=== PATIENT | female | born 1975 | race Caucasian/White ===

== ENCOUNTER → 2016-09-03 | Outpatient (CLI) | payer BC ==
--- NOTE | 2016-09-03 08:45 | DIAGNOSTIC IMAGING REPORT ---
ULTRASOUND RIGHT UPPER QUADRANT ABDOMEN CLINICAL HISTORY: Right upper quadrant abdominal pain. COMPARISON STUDY: No priors. TECHNIQUE: Real-time, grayscale, and color flow sonography of the right upper quadrant of the abdomen was performed. Images are reviewed in the transverse and longitudinal planes. FINDINGS: Liver: The liver is normal in size and echotexture. There is no intrahepatic biliary ductal dilatation. The main portal vein is patent. Gallbladder: The gallbladder is normal in appearance. No gallstones are identified. There is no gallbladder wall thickening or pericholecystic fluid. A sonographic Ennis's sign is reportedly absent. The common bile duct measures up to 0.3 cm in diameter. Pancreas: Visualized portions of the pancreatic head and body are normal in appearance. Right kidney: Survey images of the right kidney demonstrate normal size and echotexture. There is no hydronephrosis. Ascites: None. IMPRESSION: Unremarkable sonographic assessment of the right upper quadrant. No gallstones are identified. Electronically signed by: Marco A Cole M.D. 09/03/2016 8:44 AM Dictated Date/Time: 09/03/2016 8:43 AM
== END | disposition home or self-care (01) ==
LOC: C.ULTR 07:58
PROVIDERS: ATTEND Family Medicine
DX: R10.11 Right upper quadrant pain (principal)

== ENCOUNTER → 2016-09-03 | Outpatient (CLI) | payer BC ==
[2016-09-03 10:06] LABS: COMPLETE YES; EOS % 3.3 %; HEMATOCRIT 45.1 % (37-47); LYMPH ABS # 0.97 K/uL (1.2-3.4); MEAN CELL VOLUME 89.8 fL (80-100); MEAN CORPUSCULAR HEMOGLOBIN 30.7 pg (25-34); MEAN CORPUSCULAR HGB CONC 34.1 g/dl (32-36); MONO % 10.8 %; NEUT % 56.9 %; PLATELET COUNT 167 K/uL (130-400); RED BLOOD COUNT 5.02 M/uL (4.2-5.4); WHITE BLOOD COUNT 3.34 K/uL (4.8-10.8)
[2016-09-03 10:29] LABS: ALB/GLOB RATIO 1.3 (0.9-2); ALKALINE PHOSPHATASE 108 U/L (45-117); ALT/SGPT 23 U/L (12-78); AST/SGOT 13 U/L (15-37); BLOOD UREA NITROGEN 13 mg/dl (7-18); BUN/CREATININE RATIO 16.8 (10-20); CARBON DIOXIDE 25 mmol/L (21-32); CHLORIDE 107 mmol/L (98-107); CREATININE 0.77 mg/dl (0.60-1.20); GLUCOSE 88 mg/dl (70-99); HDL CHOLESTEROL 94 mg/dl; POTASSIUM 3.6 mmol/L (3.5-5.1); SODIUM 142 mmol/L (136-145)
[2016-09-03 10:39] LABS: CHOLESTEROL 212 mg/dl (0-200); CHOLESTEROL/HDL RATIO 2.3; LDL CHOLESTEROL CALCULATED 102 mg/dl; TRIGLYCERIDES 79 mg/dl (0-150); VERY LOW DENSITY LIPOPROT CALC 16 mg/dl
== END | disposition home or self-care (01) ==
LOC: C.LAB1850 08:58
PROVIDERS: ATTEND Family Medicine
DX: Z00.00 Encounter for general adult medical examination without abnormal findings (principal); Z13.220 Encounter for screening for lipoid disorders; Z13.29 Encounter for screening for other suspected endocrine disorder

== ENCOUNTER → 2016-09-03 | Outpatient (CLI) | payer BC ==
--- NOTE | 2016-09-03 16:30 | MAMMOGRAPHY REPORT ---
BILATERAL FIRST EVER DIGITAL SCREENING MAMMOGRAM TOMOSYNTHESIS WITH CAD: 09/03/2016 TECHNIQUE: Breast tomosynthesis in addition to standard 2D mammography was performed. Current study was also evaluated with a Computer Aided Detection (CAD) system. COMPARISON: No prior exams were available for comparison. BREAST COMPOSITION: The tissue of both breasts is extremely dense, which lowers the sensitivity of mammography. FINDINGS: There is a 6 mm asymmetry seen within the left superior posterior breast on the MLO view only, which likely represents normal overlapping fibroglandular tissue although spot compression shawna osynthesis views and possible breast ultrasound are recommended for further evaluation, given no yair ors available to document stability. The remainder of both breasts are negative, without suspicious masses, calcifications, or areas of a rchitectural distortion noted. IMPRESSION: ACR BI-RADS CATEGORY 0: INCOMPLETE EVALUATION: NEED ADDITIONAL IMAGING EVALUATION Left breast asymmetry, for which additional imaging evaluation is recommended. The patient will be called to schedule an appointment. Approximately 10% of breast cancers are not detected with mammography. A negative mammographic repor t should not delay biopsy if a clinically suggestive mass is present. Katie Mccall M.D. ah/:09/03/2016 16:12:54 Outbound Telemarketing Representative: Asia BEARD)(Varun), [facility] letter sent: Addl Imaging 0 BI-RADS Code: ACR BI-RADS Category 0: Incomplete Evaluation: Need Additional Imaging Evaluation
== END | disposition home or self-care (01) ==
LOC: C.MAMM 09:10
PROVIDERS: ATTEND Family Medicine
DX: Z12.31 Encounter for screening mammogram for malignant neoplasm of breast (principal); N64.89 Other specified disorders of breast

== ENCOUNTER → 2016-09-13 | Outpatient (CLI) | payer BC ==
--- NOTE | 2016-09-13 13:33 | MAMMOGRAPHY REPORT ---
UNILATERAL LEFT DIGITAL DIAGNOSTIC MAMMOGRAM TOMOSYNTHESIS AND TARGETED LEFT ULTRASOUND: 09/13/2016 CLINICAL HISTORY: 41 year-old woman called back from baseline screening mammography for a 6 mm asymm etry in the superior posterior left breast, only seen on the MLO view. No strong family history of breast cancer. TECHNIQUE: Spot compression left CC and MLO today digital and tomosynthesis images were obtained. COMPARISON: Comparison is made to exam dated: 09/03/2016 mammogram - [facility]. BREAST COMPOSITION: The tissue of the left breast is extremely dense, which lowers the sensitivity of mammography. FINDINGS: There is effacement of the 6 mm asymmetry with the additional supplemental spot compressi on MLO view including tomosynthesis images. There is no focal architectural distortion or a cluster of suspicious microcalcification. Further evaluation with ultrasound was performed. Real-time high-resolution sonographic evaluation was performed throughout the left breast including the retroareolar aspect of the breast. The first 3 ultrasound images are mislabeled right breast. This is actually the left breast. In the 10:00 left breast, 1 cm from the nipple, there is a parallel hypoechoic solid versus cystic m ass with partially circumscribed partially indistinct borders measuring 6.0 x 3.4 x 6.1 mm. This ma y possibly correlate with the mammographic asymmetry and is indeterminate. Definitive characterizat ion with ultrasound guided core biopsy is recommended. Other scattered anechoic benign simple cysts are seen throughout the remainder of the left breast including a circumscribed anechoic cyst with p osterior acoustic enhancement in the 10:00 left breast, 2 cm from the nipple, measuring 5.6 x 5.6 x 5.8 mm. It is unclear if this cyst or the indeterminate solid versus cystic mass in the 10:00 axis, 1 cm from the nipple may correlate with the original mammographic asymmetry seen on the screening m ammogram. Correlation with postprocedure mammograms is recommended. Other smaller scattered oval p arallel circumscribed anechoic cysts are identified in the 12:00 left breast, 1 cm from the nipple a nd in the 3:00 left breast, 1 cm from the nipple. IMPRESSION: ACR BI-RADS CATEGORY 4B: INTERMEDIATE SUSPICION FOR MALIGNANCY, TARGETED ULTRASOUND ACR BI-RADS CATEGORY 4B: INTERMEDIATE SUSPICION FOR MALIGNANCY 1. Ultrasound guided core needle biopsy is recommended for a 6 mm indeterminate solid versus cystic mass in the 10:00 left breast, 1 cm from the nipple. It is unclear whether this correlates with th e 6 mm asymmetry seen on the left MLO view from the patient's screening mammogram for correlation wi th post procedure mammograms is recommended. 2. Several other benign anechoic simple cysts are scattered throughout the visualized left breast o n ultrasound, compatible with benign fibrocystic changes. These results and recommendations were discussed with the patient at the time of the exam. She tenta tively scheduled the biopsy prior to leaving our department. Approximately 10% of breast cancers are not detected with mammography. A negative mammographic repor t should not delay biopsy if a clinically suggestive mass is present. Tia Hunt M.D. ay/:09/13/2016 12:15:38 Ship'S Master: Nimisha Darnell, [facility] letter sent: Abnormal 4/5 BI-RADS Code: ACR BI-RADS Category 4B: Intermediate Suspicion For Malignancy Ultrasound BI-RADS: AC R BI-RADS Category 4B: Intermediate Suspicion For Malignancy
== END | disposition home or self-care (01) ==
LOC: C.MAMM 09:38
PROVIDERS: ATTEND Family Medicine
DX: N64.89 Other specified disorders of breast (principal); N63 Unspecified lump in breast; N60.02 Solitary cyst of left breast

== ENCOUNTER → 2016-09-27 | Outpatient (CLI) | payer BC ==
--- NOTE | 2016-09-27 10:15 | Discharge Instructions ---
Discharge Instructions Procedure Procedure Date: Sep 27, 2016. Reason for visit: Left Mass. Discharge Discharge Date: Sep 27, 2016. Discharge Diagnosis: post left breast ultrasound guided core biopsy Instructions Activity Recommendations: Additional Limitations (see below) Return to School/Work: no limitations Recommended Home Diet: No Limitations Provider Instructions: ACTIVITY RECOMMENDATIONS: * No lifting, pushing, pulling or exercising the affected side for three days. RETURN TO SCHOOL/WORK: * You may return to work/school after the procedure, but do not perform any strenuous activities for 24 to 48 hours. MEDICATIONS: * Tylenol (two 325 mg) every four to six hours if needed for mild pain (if not allergic to Tylenol). DIET: * Resume previous diet. SPECIAL CARE INSTRUCTIONS: * Keep biopsy site dry for 24 hours. May shower after 24 hours, but do not soak (bathe) incision. * May remove Tegaderm (plastic patch) tomorrow AFTER showering. * Leave the steri-strips on for one week. Allow the steri-strips to fall off by themselves. If not off after one week, you may remove them. You may place a Bandaid crosswise over the strips, if desired. * Apply ice 10 minutes on and 10 minutes off as needed. * Wear a bra at bedtime to sleep more comfortably for 2-3 days. * Your referring physician should have the results after approximately 5 to 7 business days. * Call for unusual bleeding, fever, drainage, etc or if you have any questions call [phone] during normal business hours or after hours call Dr Hunt, . FOLLOW UP VISIT: Follow-up with Referring Physician as scheduled. [facility] Recommendations: Call your doctor if: * Temperature above 101 degrees * Pain not relieved by pain medicine ordered * There is increased drainage or redness from any incision * You have any unanswered questions or concerns. Your Doctors Instructions noted above were prepared by provider Tia Hunt. Patient Signature Section: Patient Instructions Signature Page Alysha Figueredo Patient (or Guardian) Signature/Date: I have read and understand the instructions given to me by my caregivers. Caregiver/RN/Doctor Signature/Date: The above-named patient and/or guardian has received patient instructions on this date. + Original Patient Signature Page (only) stays with chart. Please make copy for patient.
--- NOTE | 2016-09-27 15:12 | MAMMOGRAPHY REPORT ---
THIS REPORT HAS BEEN AMENDED. ULTRASOUND GUIDED BIOPSY LEFT BREAST: 09/27/2016 CLINICAL HISTORY: Indeterminate solid versus cystic mass in the 10:00 left breast. Patient presents for ultrasound-guided core needle biopsy. COMPARISON: Comparison is made to exams dated: 09/13/2016 ultrasound, 09/13/2016 mammogram, and 09/03/19 17 mammogram - [facility]. PATIENT CONSENT: The procedure, risks and benefits were discussed with the patient and informed writ ten consent was obtained. Specific risks to this procedure include: bleeding, infection, puncture of adjacent structure, nontarget biopsy, sampling error, metal allergy and medication reaction. PROCEDURE DESCRIPTION: A time out was performed and the left breast was agreed as the site of biopsy . The skin was prepped and draped in the usual sterile fashion. The solid versus cystic mass in the 10:00 left breast was chosen as the target for biopsy. Subcutaneous and intraparenchymal 1% buffered lidocaine was administered as local anesthesia. A skin incision was made. Through the incision, 4 samples were taken with a 14 gauge Achieve biopsy device. A metallic marker was placed at the biopsy site. Hemostasis was achieved after manual compression. The patient tolerated the procedure well an d there was no immediate complication. Postprocedure left CC and ML views were obtained. There is a new ribbon-shaped metallic biopsy kayla er and no significant hematoma in the 10:00 posterior left breast at the site of the biopsied solid versus cystic mass seen on ultrasound. Based on the MLO view, the ribbon-shaped biopsy marker is 2 mm inferior to the geometric center of the asymmetry seen on the screening mammogram and this may co rrelate. Nevertheless, pending benign pathology results, a short interval follow-up left mammogram including tomosynthesis images and possible repeat ultrasound is recommended to ensure stability in 6 months. IMPRESSION: ULTRASOUND GUIDED BIOPSY Status post ultrasound-guided core biopsy of an indeterminate solid versus cystic mass in the 10:00 left breast, with biopsy marker placed at the site. The biopsy marker clip is located just inferior to the asymmetry based on the post procedure left ML O view. Pending benign pathology results, follow-up left diagnostic mammograms and possible ultraso und is recommended in 6 months. The patient will receive notification of the biopsy results from her referring physician. Tia Hunt M.D. ay/:09/27/2016 12:50:32 Multiple Drill Operator: Asia BEARD)(Varun), [facility] AMENDMENT: 10/06/2016 Tia Hunt M.D. Pathology from the ultrasound guided core biopsy of a mass in the 10:00 left breast yielded benign b reast tissue with fibrocystic changes. Negative for in situ and invasive carcinoma. The pathology results are concordant with the imaging appearance. As per prior recommendations, recommend follow- up diagnostic mammograms and possible ultrasound of the left breast to ensure stability in 6 months.
--- NOTE | 2016-09-27 15:14 | MAMMOGRAPHY REPORT ---
UNILATERAL LEFT DIGITAL DIAGNOSTIC MAMMOGRAM: 09/27/2016 CLINICAL HISTORY: Status post ultrasound guided core biopsy in the 10:00 left breast. Please refer to the report from left breast ultrasound guided core biopsy performed at the same time for full detail. IMPRESSION: POST PROCEDURE IMAGING FOR MARKER PLACEMENT Please refer to the report from left breast ultrasound guided core biopsy performed at the same time for full detail. A follow-up diagnostic left mammogram and an ultrasound in 6 months is recommended to demonstrate st ability. Approximately 10% of breast cancers are not detected with mammography. A negative mammographic repor t should not delay biopsy if a clinically suggestive mass is present. Tia Hunt M.D. ay/:09/27/2016 10:21:05 Ship Fastener: Asia GARNER(R)(M), [facility] BI-RADS Code: Post Procedure Imaging For Marker Placement
== END | disposition home or self-care (01) ==
LOC: C.MAMM 09:28
PROVIDERS: ATTEND Family Medicine
DX: N63 Unspecified lump in breast (principal)

== ENCOUNTER → 2017-03-28 | Outpatient (CLI) | payer BC ==
--- NOTE | 2017-03-28 15:24 | MAMMOGRAPHY REPORT ---
UNILATERAL LEFT DIGITAL DIAGNOSTIC MAMMOGRAM TOMOSYNTHESIS WITH CAD: 03/28/2017 CLINICAL HISTORY: 41 year-old woman presents for follow-up after a benign left breast biopsy. She wa s initially callback from screening for an asymmetry in the posterior left breast along the posterior nipple line on the MLO view, but on the postprocedure mammograms the biopsy marker clip was located inferior to the original asymmetry. TECHNIQUE: Left CC and MLO 2-D and tomosynthesis images were obtained. A repeat left MLO view was pe rformed for a skin fold. Current study was also evaluated with a Computer Aided Detection (CAD) syst em. COMPARISON: Comparison is made to exams dated: 09/27/2016 ultrasound biopsy, 09/13/2016 ultrasound, 09/13 mammogram, 09/03/2016 mammogram, and 09/27/2016 mammogram - [facility]. BREAST COMPOSITION: The tissue of the left breast is extremely dense, which lowers the sensitivity o f mammography. FINDINGS: There is a stable ribbon shaped metallic biopsy marker in the 10:00 left breast. No new elliott spicious mass, architectural distortion or cluster of microcalcifications is seen. The 6 mm asymmetr y in the posterior breast along the posterior nipple line on the MLO view is not seen on either of th e current MLO views, confirming benignity, likely normal overlapping fibroglandular tissue. IMPRESSION: ACR BI-RADS CATEGORY 2: BENIGN Stable post biopsy changes in the left breast. An asymmetry in the posterior breast is no longer see n, confirming benignity. There is no mammographic evidence of malignancy in the left breast. Recomm end return to annual screening mammography schedule. Approximately 10% of breast cancers are not detected with mammography. A negative mammographic report should not delay biopsy if a clinically suggestive mass is present. Tia Hunt M.D. ay/:03/28/2017 11:15:24 Bull Bucker: Asia BEARD)(Varun), [facility] letter sent: Normal 1/2 BI-RADS Code: ACR BI-RADS Category 2: Benign
== END | disposition home or self-care (01) ==
LOC: C.MAMM 09:57
PROVIDERS: ATTEND Physician Assistant
DX: Z09 Encounter for follow-up examination after completed treatment for conditions other than malignant neoplasm (principal); R92.8 Other abnormal and inconclusive findings on diagnostic imaging of breast